=== PATIENT | male | born 1990 | race Caucasian/White ===

== ENCOUNTER 2020-04-21 18:03 | Emergency (ER) | payer OTHER ==
[2020-04-21 22:01] LABS: HEMOGLOBIN 14.1 gm/dl (14.0-17.5); RED BLOOD COUNT 4.36 M/UL (4.20-5.50); WHITE BLOOD COUNT 7.7 K/UL (4.5-11.0)
[2020-04-21 22:17] LABS: BUN/CREATININE RATIO 12 (0-10)
== END 2020-04-21 23:45 | disposition home or self-care (01) ==
LOC: EDBD 18:03 → ER1 18:03
PROVIDERS: Emergency Medicine
DX: J18.9 Pneumonia, unspecified organism (principal); F17.210 Nicotine dependence, cigarettes, uncomplicated; Z88.8 Allergy status to other drugs, medicaments and biological substances
CPT/HCPCS: 36415; 71045; 80053; 85025; 87040; 99283